=== PATIENT | female | born 1935 | race Caucasian/White ===

== ENCOUNTER 2018-05-20 16:31 | Observation (INO) | payer MEDICARE ==
[2018-05-20 17:36] LABS: #Eosinphils 0.3 thou/uL (0.0-0.7); #Lymphocytes 0.7 thou/uL (1.20-3.40); #Monocytes 0.4 thou/uL (0.11-0.59); #Neutrophils 5.9 thou/uL (1.40-6.50); %Basophils 0.1 % (0.0-1.0); %Eosinophils 3.6 % (0.0-10.0); %Lymphocytes 9.7 % (21.0-51.0); %Monocytes 5.8 % (0.0-10.0); %Neutrophils 80.8 % (42.0-75.0); Hemoglobin 11.2 g/dL (12.0-16.0); Mean Corpuscular Hemoglobin 27.9 pg (27.0-31.0); Mean Corpuscular Volume 87.4 fL (78.0-98.0); Mean Platelet Volume 9.3 fL (7.4-10.4); Platelet Count 184 thou/uL (130-400); Red Blood Cell (RBC) Count 4.03 mill/uL (4.20-5.40); White Blood Cell (WBC) Count 7.4 thou/uL (4.8-10.8)
--- NOTE | 2018-05-20 17:56 | ULT ---
ULTRASOUND WITH DOPPLER DUPLEX VENOUS LOWER EXTREMITIES BILATERAL: HISTORY: An 83-year-old female with bilateral lower extremity pain. TECHNIQUE: Color flow Doppler, spectral waveform analysis of pulsed Doppler, and johnson-scale imaging with thony yue and augmentation, were used to evaluate the bilateral common femoral, femoral, popliteal, telehealth case manager ior tibial, and superficial femoral, veins; and the proximal portions of the profunda femoral and gre ater saphenous, veins. FINDINGS: There is normal compressibility, demonstration of blood flow by color Doppler and pulsed Doppler, and response to augmentation, in all interrogated veins. IMPRESSION: Negative. No deep vein thrombosis in the bilateral lower extremities. jn[] POS: ANA
[2018-05-20 17:57] LABS: ALT (SGPT) 8 U/L (8-55); AST (SGOT) 15 U/L (5-34); Albumin 3.6 g/dL (3.4-4.8); Alkaline Phosphatase 55 U/L (40-150); Anion Gap 11 mmol/L (10-20); BUN (Urea Nitrogen) 16 mg/dL (9.8-20.1); Bilirubin, Total 0.5 mg/dL (0.2-1.2); CK (CPK) 29 U/L (29-168); Calc. Creatinine Clearance 0 mL/min (70-130); Calcium 8.4 mg/dL (7.8-10.44); Carbon Dioxide 25 mmol/L (23-31); Chloride 107 mmol/L (98-107); Estimated GFR-MDRD 53; Globulin 2.4 g/dL (2.4-3.5); Glucose 97 mg/dL (83-110); Lipase 18 U/L (8-78); Potassium 3.9 mmol/L (3.5-5.1); Sodium 139 mmol/L (136-145)
[2018-05-20 18:01] LABS: CKMB 1.9 ng/mL (0-6.6); Troponin I 0.087 ng/mL (< 0.028)
[2018-05-20 18:46] LABS: Bilirubin Negative (Negative); Blood, Urine Negative (Negative); Clarity CLEAR (Clear); Glucose, Urine (Dipstick) Negative (Negative); Leukocyte Negative (Negative); Nitrite Negative (Negative); Protein, Urine (Dipstick) 100 mg/dL (Neg-Trace); Specific Gravity, Urine 1.011 (1.002-1.036); Urobilinogen 0.2 mg/dL (0.2-1.0)
[2018-05-20 18:49] LABS: Bacteria/HPF None Seen HPF (None Seen); Hyaline Casts/LPF 0-3 HYALINE CAST LPF (0-3 Hyaline); Pathc Cast-AUWi Flag 0.29 (0-2.49); RBC/HPF 0-3 HPF (0-3); Squamous Epithelial 0-3 HPF (0-3); WBC/HPF 0-3 HPF (0-3)
[2018-05-20] MEDS ORDERED: Enoxaparin Sodium 60 MG/0.6 ML SYRINGE ONE (19:05)
[2018-05-20] MEDS ORDERED: Furosemide 40 MG/4 ML VIAL ONE (19:05)
[2018-05-20] MEDS ORDERED: Nitroglycerin 2% Ointment 1 INCH/1 GM Packet ONE (19:05)
[2018-05-20] MEDS ORDERED: Ondansetron HCl/PF 4 MG/2 ML Vial IVP PRN (19:45)
[2018-05-20] MEDS ORDERED: Acetaminophen 325 MG TAB PO PRN (19:45)
[2018-05-20 21:20] LABS: Troponin I 0.064 ng/mL (< 0.028)
[2018-05-20] MEDS ORDERED: hydrALAZINE 20 MG/ML VIAL SLOW IVP PRN (21:29)
[2018-05-20] MEDS ORDERED: Dextrose 50% Abboject 50 ML SYRINGE SLOW IVP PRN (21:30)
[2018-05-20] MEDS ORDERED: HumaLOG 300 UNITS/3 ML VIAL SC PRN (21:30)
[2018-05-20] MEDS ORDERED: Dextrose 5% in Water 1,000 ML IV PRN (21:30)
[2018-05-20 21:34] VITALS: BMI 21.3
[2018-05-20 23:34] LABS: Troponin I 0.054 ng/mL (< 0.028)
--- NOTE | 2018-05-21 01:38 | HP ---
PRIMARY CARE PHYSICIAN: Jorge Johns MD CODE STATUS: FULL CODE. TIME OF EVALUATION: 7:30 p.m. CHIEF COMPLAINT: Chest pain, shortness of breath. HISTORY OF PRESENT ILLNESS: This is an [id number] male patient with past medical history of CHF, p revious CT, hypertension, diabetes, came to the hospital after having [id number] shortness of b reath and chest pain associated with chills, dizziness, nausea. No clear triggers, no alleviating fa ctors. REVIEW OF SYSTEMS: Constitutional: The patient reported no fever. She reported some chills, genera lized weakness. Respiratory: Some cough, no sputum production. Shortness of breath. Cardiovascula r: The patient with some chest pain. No palpitation. Gastrointestinal: The patient reported some nausea and vomiting. No diarrhea or abdominal pain. PERFORMANCE ANALYST: No dizziness, headache, or feeling lighth eaded. Genitourinary: No burning on urination. Extremities: No leg swelling. All other systems w ere reviewed and negative except for the findings mentioned above. PAST MEDICAL HISTORY: History of CHF, coronary artery disease, hypertension, diabetes. PAST SURGICAL HISTORY: Cardiac stent, hemicolectomy, tonsillectomy. SOCIAL HISTORY: The patient drinks socially twice a month. Former drug abuser. Smoked cigarettes, quit smoking more than 10 years ago. FAMILY HISTORY: Reviewed and noncontributory for current presentation. ALLERGIES: IODINE. REPORTED MEDICATIONS: Lisinopril, Plavix, and atorvastatin. PHYSICAL EXAMINATION: VITAL SIGNS: On presentation, blood pressure 164/117 with a heart rate of 56, respiratory rate was 1 6, temperature 97.7, pain was 0/10, oxygen saturation 97 on room air. GENERAL APPEARANCE: The patient is alert, oriented, not in acute distress. HEENT: Eyes, normal conjunctivae. Moist oral mucosa. Anicteric. NECK: No JVD. RESPIRATORY: Bilateral air entry. No rales, no wheezes. Symmetric expansion. CARDIOVASCULAR: Normal rate, regular rhythm. No murmurs, no gallop, no edema. ABDOMEN: Soft. Normal bowel sounds. MUSCULOSKELETAL: Baseline range of motion and strength. No tenderness. SKIN: Warm and intact. No pallor, no rash, no redness. Peripheral pulses are present. Capillary r efill seems to be intact. NEUROLOGIC: Baseline sensorium. No evidence of any new focal weakness. Baseline speech. Cranial n erves seem to be intact. PSYCHIATRIC: The patient is in good mood. No anxiety. Oriented. Optimal judgment. EKG was reviewed. Sinus bradycardia, rate of 58, DC 190, no evidence of any acute ischemic events. RADIOLOGY: CT chest, negative without contrast. Ultrasound of bilateral extremities negative. LABORATORY DATA: Reviewed. White count 7.4, hemoglobin 11.2, MCV 87, platelet count 184. D-dimer 1 .26. Chemistry: Sodium 139, potassium 3.9, chloride 107, carbon dioxide 25, anion gap 11, BUN 16, c reatinine 0.99, GFR 53, glucose 97, lactic acid 0.9, calcium 8.4, total bilirubin 0.5, AST 15, ALT 8, alkaline phosphatase 55, CK 29, CK-MB 1.9. Troponin is 0.087. Beta-natriuretic peptide 115.8. Ser um total protein 6, albumin 3.6, globulin 2.4, albumin globulin ratio 1.5, lipase 18, TSH 0.5. Urine was negative. ASSESSMENT AND PLAN: The patient will be placed in the hospital with following medical problems: 1. Chest pain, rule out acute coronary syndrome. We will trend troponins. The patient has positive D-dimer. CT without contrast was negative. We will do V/Q scan for PE. We will follow zaki p. Adjust treatment as needed. 2. Elevated beta-natriuretic peptide most compatible with possible congestive heart failure exacerba tion. We will have . 3. Mild elevation in troponins. We will trend. Rule out acute coronary syndrome. Monitor on tele. May need Cardiology evaluation in the morning. 4. Uncontrolled blood pressure with systolic blood pressure 167 and diastolic in the 70s. We will r econcile home meds. IV p.r.n. medications for optimal control. 5. Controlled diabetes. We will place the patient on sliding scale for optimal control. 6. Deep venous thrombosis prophylaxis.
[2018-05-21 05:13] LABS: #Eosinphils 0.6 thou/uL (0.0-0.7); #Lymphocytes 1.2 thou/uL (1.20-3.40); #Monocytes 0.6 thou/uL (0.11-0.59); #Neutrophils 3.7 thou/uL (1.40-6.50); %Basophils 0.3 % (0.0-1.0); %Eosinophils 10.2 % (0.0-10.0); %Lymphocytes 19.8 % (21.0-51.0); %Monocytes 9.6 % (0.0-10.0); %Neutrophils 60.1 % (42.0-75.0); Mean Corpuscular HGB CONC 32.7 g/dL (32.0-36.0); Mean Corpuscular Hemoglobin 27.8 pg (27.0-31.0); Mean Corpuscular Volume 85.2 fL (78.0-98.0); Mean Platelet Volume 9.1 fL (7.4-10.4); Platelet Count 211 thou/uL (130-400); RBC Distribution Width 19.9 % (11.5-14.5); Red Blood Cell (RBC) Count 3.96 mill/uL (4.20-5.40); White Blood Cell (WBC) Count 6.2 thou/uL (4.8-10.8)
[2018-05-21 05:36] LABS: Anion Gap 12 mmol/L (10-20); BUN (Urea Nitrogen) 21 mg/dL (9.8-20.1); Calc. Creatinine Clearance 27 mL/min (70-130); Calcium 8.7 mg/dL (7.8-10.44); Carbon Dioxide 25 mmol/L (23-31); Chloride 107 mmol/L (98-107); Estimated GFR-MDRD 39; Glucose 88 mg/dL (83-110); Potassium 3.4 mmol/L (3.5-5.1); Sodium 141 mmol/L (136-145)
[2018-05-21] MEDS ORDERED: ADENOSINE 60 MG/20 ML VIAL ONE (07:40)
[2018-05-21] MEDS ORDERED: Potassium Chloride 20 MEQ TAB PO SCH (07:45)
[2018-05-21] MEDS ORDERED: Prevnar 13-Val Conj/PF 0.5 ML SYRINGE IM ONE (09:00)
[2018-05-21] MEDS ORDERED: Enoxaparin Sodium 40 MG/0.4 ML SYRINGE SC SCH (09:00)
[2018-05-21] MEDS ORDERED: Enoxaparin Sodium 60 MG/0.6 ML SYRINGE SC SCH (09:00)
--- NOTE | 2018-05-21 09:55 | RAD ---
CHEST 1 VIEW: HISTORY: Pain. COMPARISON: None. FINDINGS: Atherosclerosis of the aorta. Normal cardiac silhouette. The pulmonary vessels and hilum are normal . Costophrenic angles are clear. Lungs are hyperinflated with chronic changes. There is obscuratio n of the right heart border suggesting a middle lobe infiltrate or atelectasis. No pneumothorax. IMPRESSION: 1. Hyperinflation. Chronic obstructive pulmonary disease. 2. Obscuration of right heart border due to atelectasis or pneumonia. 3. Atherosclerosis. POS: BREA
[2018-05-21] MEDS ORDERED: Sodium Chloride 0.9% 1,000 ML IV SCH (10:00)
--- NOTE | 2018-05-21 10:06 | PDOC.EVN ---
Event Note - Event Note Event Note: spoke with pt she states that she had diarrhea x1 yesterday am after eating out on Sunday night. pt states she just has not been feeling well. furthermore she states that when she had her heart attack she felt fatigue and that is what concerned her. 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 pt's cxr possible infiltrate to RLL, will discontinue v/q scan since this will be a suboptimal study. will hydrate her and if her creatinine is stable will do chest CTA.
--- NOTE | 2018-05-21 15:22 | CON ---
DATE OF CONSULTATION: 05/21/2018 REASON FOR CONSULTATION: Atypical chest pain. HISTORY OF PRESENT ILLNESS: Ms. Zayas is an 83-year-old woman who has been seen and evaluated in the past. She has a history of CAD, status post stent placement in [place], [place]. This was performed in 2009. She underwent a Cypher stent to the ostium of the right coronary artery, 3 x 30 mm drug-elu ting stent her diagram. She also had a stent placed to the circumflex artery. She recently complained of dizziness, lightheadedness. She also complained of chest tightness, which was mild in nature. It was not exertionally related. She previously was seen by myself last month and recommended a noninvasive stress study, this has not been performed. PAST MEDICAL HISTORY: CAD status post stent placement, diabetes mellitus, hypertension, hyperlipidem ia, previous MN, hypertension, stent to the ostial right coronary artery and circumflex artery. PAST SURGICAL HISTORY: Tonsillectomy. ALLERGIES: None. SOCIAL HISTORY: No current tobacco or alcohol use. REVIEW OF SYSTEMS: Ten-point review of systems as above, otherwise negative. PHYSICAL EXAMINATION: VITAL SIGNS: Blood pressure 139/64, pulse 60, temperature 99. NEUROLOGIC: The patient is alert and oriented times 3 with no focal neurologic deficits. HEENT: Sclerae without icterus. Mouth has moist mucous membranes with normal pallor. NECK: No JVD. Carotid upstroke brisk. No bruits bilaterally. LUNGS: Clear to auscultation with unlabored respirations. BACK: No scoliosis or kyphosis. CARDIAC: Regular rate and rhythm with normal S1 and S2. No S3 or S4 noted. No significant rubs, murmurs, thrills, or gallops noted throughout the precordium. PMI is not displaced. There is no parasternal heave. ABDOMEN: Soft, nontender, nondistended. No peritoneal signs present. No hepatosplenomegaly. No abnormal striae. EXTREMITIES: 2+ femoral and 2+ dorsalis pedis pulses. No cyanosis, clubbing, or edema. SKIN: No gross abnormalities. PERTINENT LABS: Peak troponin 0.064. EKG normal sinus rhythm, normal EKG. IMPRESSION: 1. Atypical chest pain. 2. Dizziness. 3. Diarrhea. RECOMMENDATIONS: At this point, history of CAD, but her symptoms are atypical. It seems to pr oceed with a noninvasive stress study is previously scheduled. Further recommendation will be pendin g the findings on the stress.
--- NOTE | 2018-05-21 16:11 | NM ---
EXAM: NUCLEAR MEDICINE CARDIAC STRESS WITH EF AND WALL MOTION 05/21/18 HISTORY: Chest pain. History of coronary artery disease. Cardiac stent. COMPARISON: None. TECHNIQUE: The patient was administered 0.1 millicuries technetium 99m Sestamibi for rest imaging and 32.9 marium curies of technetium 99m Sestamibi for stress imaging. Cardiac gating is performed. FINDINGS: Homogeneous distribution of radiotracer to the left ventricle. No reversibility. No fixed defect. TID is 0.92. End diastolic volume is 71 mL. End systolic volume is 19 mL. CARDIAC GATING: Normal motion and thickening. 72% ejection fraction. IMPRESSION: 1. No reversibility or fixed defect. 2. 72% ejection fraction. POS: BREA
[2018-05-22 06:37] LABS: Hemoglobin 10.7 g/dL (12.0-16.0); Platelet Count 218 thou/uL (130-400)
[2018-05-22 07:06] LABS: Anion Gap 12 mmol/L (10-20); BUN (Urea Nitrogen) 17 mg/dL (9.8-20.1); Calc. Creatinine Clearance 37 mL/min (70-130); Calcium 8.3 mg/dL (7.8-10.44); Carbon Dioxide 23 mmol/L (23-31); Chloride 109 mmol/L (98-107); Estimated GFR-MDRD 51; Glucose 86 mg/dL (83-110); Potassium 3.8 mmol/L (3.5-5.1); Sodium 140 mmol/L (136-145)
[2018-05-22] MEDS ORDERED: Enoxaparin Sodium 60 MG/0.6 ML SYRINGE SC SCH (09:00)
[2018-05-22] MEDS ORDERED: Lisinopril 20 MG TAB PO SCH (10:45)
[2018-05-22] MEDS ORDERED: Clopidogrel Bisulfate 75 MG TAB PO SCH (10:45)
--- NOTE | 2018-05-22 11:25 | DIS ---
DATE OF ADMISSION: 05/20/2018 DATE OF DISCHARGE: 05/22/2018 DISCHARGE DIAGNOSES: 1. Chest pain, likely musculoskeletal, noncardiac. 2. Hypertension, labile. 3. Coronary artery disease, chronic and stable. 4. Hyperlipidemia. CONSULTATIONS: Parish Moeller M.D. with Cardiology Service. PERTINENT LABORATORY AND X-RAY FINDINGS: Complete metabolic profile within normal limits. Troponin I ranged between 0.054-0.087. BNP 316. TSH 0.58. CBC showed a hemoglobin ranging between 10.7-11.2 . Blood cultures x2 dated 05/20/2018 showed no growth to date. Bilateral lower extremity venous Dop pler study dated 05/20/2018 showed no evidence for DVT. Portable chest x-ray dated 05/21/2018 showed hyperinflation of bilateral lung salgado without acute process. Cardiolite stress test dated 018 showed no evidence of reversible or fixed ischemia with calculated ejection fraction of 72%. HOSPITAL COURSE: The patient was observed on the telemetry unit after initially presenting with shor tness of breath and chest pain. The patient underwent extensive evaluation including metabolic scree amol showing evidence of mild troponin elevation. Due to history of coronary artery disease, the pat ient proceeded with Cardiolite stress testing showing no evidence of reversible or fixed ischemia wit h calculated ejection fraction of 72%. The patient was evaluated by the Cardiology service without susana daniels recommendations for acute intervention and to continue medical management with Plavix and Lipi tor. Telemetry monitoring showed sinus mechanism without evidence of acute arrhythmia or dysrhythmia . The patient remained clinically stable throughout the hospital course, tolerating regular oral int gamaliel with stable vital signs. The patient was noted with mild elevated blood pressure with recommenda tions for ongoing monitoring on an outpatient basis. The patient may need additional titration of he r antihypertensive regimen after discharge. I have examined the patient at the time of discharge and discussed followup instructions. The patient verbalized understanding and agreement and ready for d ischarge on 05/22/2018. DISCHARGE MEDICATIONS: 1. Lipitor 40 mg p.o. daily. 2. Plavix 75 mg p.o. daily. 3. Benadryl 25 mg p.o. daily p.r.n. 4. Ferrous sulfate 47.5 mg p.o. daily. 5. Advil 200 mg p.o. daily p.r.n. 6. Lisinopril 40 mg p.o. daily. 7. Macrobid 100 mg p.o. b.i.d. FOLLOWUP: The patient may follow up with her primary care provider, Dr. Jorge Johns within 7 days of discharge. CONDITION ON DISCHARGE: Stable. ACTIVITY: Ad rich. DIET: Heart healthy. CODE STATUS: Full. DISPOSITION: Home, 05/22/2018.
[2018-05-22 11:41] VITALS: BP 175/74
[2018-05-22 13:45] VITALS: TEMP 98.3
[2018-05-23] MEDS ORDERED: Clopidogrel Bisulfate 75 MG TAB PO SCH (09:00)
[2018-05-23] MEDS ORDERED: Lisinopril 20 MG TAB PO SCH (09:00)
== END 2018-05-22 14:08 | disposition home or self-care (01) ==
LOC: ERS 16:31 → 2NO 18:45
PROVIDERS: ADMIT Internal Medicine Infectious Disease; ATTEND Internal Medicine Infectious Disease
DX: R07.89 Other chest pain (principal); R42 Dizziness and giddiness; R19.7 Diarrhea, unspecified; I11.0 Hypertensive heart disease with heart failure; E11.9 Type 2 diabetes mellitus without complications; I50.9 Heart failure, unspecified; I25.10 Atherosclerotic heart disease of native coronary artery without angina pectoris; Z91.041 Radiographic dye allergy status; Z87.891 Personal history of nicotine dependence; E78.5 Hyperlipidemia, unspecified; Z79.02 Long term (current) use of antithrombotics/antiplatelets; Z79.899 Other long term (current) drug therapy
CPT/HCPCS: 36415; 36416; 71045; 78452; 80048; 80053; 81003; 81015; 82550; 82553; 83605; 83690; 83880; 84443; 84484; 85014; 85018; 85025; 85049; 85379; 87040; 90471; 90670; 93005; 93017; 93970; 96372; 96374; 96375; A4216; A9500; G0009; G0378; J0153; J0360; J1650; J1940

== ENCOUNTER 2018-05-24 14:29 | Inpatient (IN) | payer MEDICARE ==
[2018-05-24] MEDS ORDERED: Ondansetron ODT 4 MG TAB PO PRN (18:36)
[2018-05-24] MEDS ORDERED: Acetaminophen 500 MG TAB PO PRN (18:36)
[2018-05-24] MEDS ORDERED: cloNIDine 0.1 MG TAB PO PRN (18:36)
[2018-05-24] MEDS ORDERED: hydrALAZINE 20 MG/ML VIAL SLOW IVP PRN (18:36)
[2018-05-24] MEDS ORDERED: Ondansetron HCl/PF 4 MG/2 ML Vial IVP PRN (18:36)
[2018-05-24] MEDS ORDERED: Nitroglycerin 0.4 MG TAB (25 Tab Bottle) SL PRN (18:36)
[2018-05-24] MEDS ORDERED: Aspirin 325 mg Enteric Coated Tablet PO SCH (18:45)
[2018-05-24 18:47] VITALS: BMI 21.3
--- NOTE | 2018-05-24 21:22 | HP ---
PRIMARY CARE PHYSICIAN: Jorge Johns MD CHIEF COMPLAINT: General weakness and nausea. HISTORY OF PRESENT ILLNESS: This is an 83-year-old female who presents to [facility] Emergency Department after a recent observation admission from 05/20/2018 to 05/22/2018 for cardi ac workup. The patient presented with atypical chest pain, undergoing Cardiolite stress testing on 0 05/21/2018 showing no evidence of reversible or fixed defect with calculated ejection fraction of 72%. The patient was evaluated by the Cardiology Service during this hospital stay; however, after a neg ative Cardiolite stress testing, was deemed appropriate for discharge. The patient states she contin ued on her regular outpatient medication regimen to include Plavix, lisinopril, and Lipitor. The pat ient states she was at home taking care of her four dogs when she began to feel weak with nausea and emesis. The patient also states she felt cold with shivering and went to get extra blankets to put o n. As she was walking through her house, she became extremely weak, slumping to the floor without lo ss of consciousness. The patient states she was unable to get off the ground and notified her childr en, who notified EMS personnel. The patient denied any specific chest pain, chest tightness, crushin g chest pain, left arm or jaw discomfort. The patient's history is significant for coronary artery d isease, undergoing cardiac stent placement in 2009 in the right coronary and circumflex arteries. In itial workup in the emergency room revealed an elevated troponin I of 2.78. Previously, the patient 's troponin I ranged between 0.054 to 0.087. The patient received aspirin in the emergency room and was referred to the Hospitalist Service for admission. PAST MEDICAL HISTORY: 1. Coronary artery disease, status post stent placement to the right coronary and circumflex artery in 2009. 2. Hypertension. 3. Hyperlipidemia. 4. Question of diabetes mellitus. PAST SURGICAL HISTORY: 1. Status post cardiac stent placement x2 to the right coronary and circumflex artery. 2. Status post hemicolectomy. 3. Status post tonsillectomy. CURRENT MEDICATIONS: 1. Lipitor 40 mg p.o. daily. 2. Plavix 75 mg p.o. daily. 3. Ferrous sulfate 47.5 mg p.o. daily. 4. Lisinopril 40 mg p.o. daily. ALLERGIES: IODINE. FAMILY HISTORY: Positive for hypertension. SOCIAL HISTORY: The patient resides in the [place], [place] area. No tobacco or illicit drug use. The patient admits to former drug use. Alcohol use approximately 2 times per month. REVIEW OF SYSTEMS: The following complete review of systems was negative, unless otherwise mentioned in the HPI or below: Constitutional: Weight loss or gain, ability to conduct usual activities. Sk in: Rash, itching. Eyes: Double vision, pain. ENT/Mouth: Nose bleeding, neck stiffness, pain, te nderness. Cardiovascular: Palpitations, dyspnea on exertion, orthopnea. Respiratory: Shortness of breath, wheezing, cough, hemoptysis, fever, or night sweats. Gastrointestinal: Poor appetite, abdo kali pain, heartburn, nausea, vomiting, constipation, or diarrhea. Genitourinary: Urgency, frequen cy, dysuria, nocturia. Musculoskeletal: Pain, swelling. Neurologic/Psychiatric: Anxiety, depressi on. Allergy/Immunologic: Skin rash, bleeding tendency. Otherwise, negative except as stated per HP I. PHYSICAL EXAMINATION: VITAL SIGNS: Currently, blood pressure 155/75, pulse 60, respiratory rate 18, temperature 98 degrees Fahrenheit, O2 saturation 95% on room air. GENERAL APPEARANCE: This is an 83-year-old female, alert and oriented x3, pleasant, conver chandana, in no acute distress. HEENT: Pupils are equal, round, and reactive to light and accommodation. Extraocular muscles are in tact. No scleral icterus. No conjunctival injection. Nares patent. OP is clear. NECK: Supple. No cervical adenopathy, no thyromegaly, no carotid bruits, no JVD appreciated. Cervi wayne spine with full active and passive range of motion. No meningeal signs appreciated. CHEST: Lungs are clear to auscultation bilaterally. CARDIOVASCULAR: S1, S2 without noted murmur, rub, or gallop. ABDOMEN: Rounded, soft, nontender, nondistended. Bowel sounds are positive in all four quadrants. There is no hepatosplenomegaly, no abdominal bruits. No rebound or guarding appreciated. EXTREMITIES: Warm and dry with fair turgor. No clubbing, cyanosis, or asymmetric edema appreciated. Pulses palpable distally at the dorsalis pedis, posterior tibial, and popliteal arteries bilaterall y. Capillary refill less than 2 seconds. NEUROLOGIC: Cranial nerves II-XII are grossly intact. No focal or lateralizing signs appreciated. PERTINENT LABORATORY AND X-RAY FINDINGS: Basic metabolic profile from 05/22/2018 within normal limit s. Troponin I is 2.78. BNP was 316 on 05/20/2018. TSH is 0.58. Cardiolite stress test dated 05/21 showed no evidence for reversible or fixed ischemia with calculated ejection fraction of 72%. EKG dated 05/24/2018 by my interpretation shows a sinus mechanism. Normal axis. No acute ST-T wave changes appreciated. ASSESSMENT AND PLAN: 1. [id number] myocardial infarction. The patient will be admitted to the telemetry unit. We will consult cardiology service for further recommendations and consideration for left heart catheter ization. Continue aspirin 325 mg daily with additional Plavix 75 mg daily. We will hold anticoagula tion as the patient without current chest pain. Check 2D transthoracic echocardiogram in the a.m. C ontinue Lipitor 40 mg p.o. at bedtime. Add metoprolol 12.5 mg p.o. b.i.d. 2. Hypertension. Resume home antihypertensive regimen and monitor clinical response. 3. Hyperlipidemia. Check fasting lipid profile in the a.m. Continue Lipitor 40 mg p.o. at bedtime. 4. Normocytic anemia. Chronic. No current evidence to suggest acute blood loss. Repeat CBC in the a.m. 5. Coronary artery disease. See #1 above. Consult Cardiology Service for further recommendations a nd consideration for repeat left heart catheterization. 6. Prophylaxis. Sequential compression devices while in bed. Pepcid 20 mg p.o. b.i.d. 7. Code status is FULL. Surrogate medical decision maker is the patient's daughter.
[2018-05-24] MEDS: Famotidine 20 MG TAB PO SCH (21:34)
[2018-05-24] MEDS: Atorvastatin Calcium 40 MG TAB PO SCH (21:34)
[2018-05-24] MEDS: Metoprolol Tartrate 25 MG TAB PO SCH (21:34)
[2018-05-24 21:57] LABS: Critical Call Chem Troponin I RESULT DECREASING; Troponin I 1.975 ng/mL (< 0.028)
[2018-05-25 01:23] LABS: Critical Call Chem Troponin I RESULT DECREASING; Troponin I 2.387 ng/mL (< 0.028)
[2018-05-25 04:58] LABS: Anion Gap 13 mmol/L (10-20); BUN (Urea Nitrogen) 22 mg/dL (9.8-20.1); Calc. Creatinine Clearance 30 mL/min (70-130); Calcium 8.7 mg/dL (7.8-10.44); Carbon Dioxide 23 mmol/L (23-31); Chloride 105 mmol/L (98-107); Cholesterol 114 mg/dl (< 200 Desired); Estimated GFR-MDRD 43; Glucose 100 mg/dL (83-110); HDL Cholesterol 38 mg/dL (>60 Neg Risk); LDL Cholesterol, Calculated 59 mg/dL; Magnesium 1.8 mg/dL (1.6-2.6); Potassium 3.9 mmol/L (3.5-5.1); Sodium 137 mmol/L (136-145); Triglycerides 85 mg/dL (Less than 150)
[2018-05-25 04:59] LABS: Band 7 % (5-11); Eosinophils 2 % (0-10); Hemoglobin 11.2 g/dL (12.0-16.0); Lymphocytes 19 % (21-51); MDiff Complete? YES; Mean Corpuscular HGB CONC 32.6 g/dL (32.0-36.0); Mean Corpuscular Hemoglobin 28.2 pg (27.0-31.0); Mean Corpuscular Volume 86.6 fL (78.0-98.0); Mean Platelet Volume 9.5 fL (7.4-10.4); Monocytes 6 % (0-10); Neutrophil 66 % (42-75); PLT Morphology Comment Appears Adequate; Platelet Count 249 thou/uL (130-400); RBC Distribution Width 19.7 % (11.5-14.5); Red Blood Cell (RBC) Count 3.95 mill/uL (4.20-5.40); White Blood Cell (WBC) Count 6.5 thou/uL (4.8-10.8)
[2018-05-25] MEDS: Metoprolol Tartrate 25 MG TAB PO SCH ×2 (09:27→20:30)
[2018-05-25] MEDS: Aspirin 325 mg Enteric Coated Tablet PO SCH (09:28)
[2018-05-25] MEDS: Clopidogrel Bisulfate 75 MG TAB PO SCH (09:28)
--- NOTE | 2018-05-25 12:49 | PDOC.PN ---
- Subjective Encounter Start Date: 05/25/18 Encounter Start Time: 12:47 Ms. Zayas was seen today in follow-up of chest pain and NSTEMI. She says she is feeling hungry, otherwise ok. The weakness chills and nausea she felt yesterday has resolved. - Objective Resuscitation Status: Resuscitation Status FULL:Full Resuscitation MAR Reviewed: Yes Vital Signs & Weight: Vital Signs (12 hours) Temp Pulse Pulse Pulse Resp BP BP 05/25/18 12:10 98.1 F 48 L 18 05/25/18 09:27 59 L 05/25/18 08:58 53 L 56 L 156/69 H 161/70 H 05/25/18 08:00 97.2 F L 59 L 18 05/25/18 07:58 97.2 F L 55 L 18 05/25/18 04:00 97.7 F 54 L 12 BP Pulse Ox Pulse Ox Pulse Ox 05/25/18 12:10 153/70 H 94 L 05/25/18 09:27 05/25/18 08:58 94 L 96 05/25/18 08:00 05/25/18 07:58 154/68 H 96 05/25/18 04:00 116/59 L 92 L Weight Weight 120 lb 8 oz Result Diagrams: 05/25/18 04:03 05/25/18 04:03 Phys Exam - Physical Examination HEENT: PERRLA, sclera anicteric Respiratory: no wheezing, no rales, no rhonchi, clear to auscultation bilateral Cardiovascular: RRR, no significant murmur, no rub no gallop Gastrointestinal: soft, non-tender, no distention, positive bowel sounds Musculoskeletal: no edema Dx/Plan (1) NSTEMI (non-ST elevated myocardial infarction) Code(s): I21.4 - NON-ST ELEVATION (NSTEMI) MYOCARDIAL INFARCTION Status: Acute (2) Hypertension Code(s): I10 - ESSENTIAL (PRIMARY) HYPERTENSION Status: Chronic (3) Dyslipidemia Code(s): E78.5 - HYPERLIPIDEMIA, UNSPECIFIED Status: Chronic - Plan * NSTEMI- continue aspirin, statin, and nitrates as needed. Her heart rate has been low, therefore Metoprolol will be held * HTN- blood pressure is slightly elevated- will monitor, and consider adding amlodipine * Dyslipidemia- continue Lipitor * Echo results are pending, and await Cardiology evaluation.
--- NOTE | 2018-05-25 16:57 | CON ---
DATE OF CONSULTATION: 05/25/[address] Alvarez' nurse practitioner. ROOM # 257. PRIMARY CARE DOCTOR: Jorge Johns M.D. PRIMARY PAROLE SUPERVISOR: Parish Moeller M.D. REFERRING DOCTOR: Lopez Mahan D.O. REASON FOR CARDIOLOGY CONSULTATION: Acute myocardial infarction. HISTORY OF PRESENT ILLNESS: Ms. Zayas is an 83 years old female with a significant history of coronary artery disease, status post stent placement x2 in 1983 and in 2009, hypertension, hyperl ipidemia, and borderline diabetes. The patient was here on 05/20 through 05/21 for the chest pain. She had a stress test at that time, which shows no ischemia and EF of 72%. On 03/22, she felt really cold and started shaking and felt nauseated, and next day, when she was taking care of her dogs, she felt weakness in the bilateral lower extremities and she slipped down for 45 minutes. Finally, she called her neighbors and they are who called the ambulance and she was transferred to emergency [facility] for further evaluation and treatment. She still complained of and the mild shakiness. H owever, patient denied any chest pain or discomfort or heaviness to the chest, palpitation, flutterin g, or any other cardiac complaints during the episode. She has a history of NV and stent placements x2. Both times, she did not have any chest pain or discomfort or shortness of breath; however, she f elt very tired, no energy. She also complained of dizziness with movement, but she denies any near s yncopal episode. Today, the nurse reports that the patient's heart rates are going down to 40s with metoprolol 12.5 twice a day. The patient denies any syncopal episodes at this time. The stress test showed no ischemia and stable EF. The patient had echocardiogram done in 03/[address] Moleler's office, which shows EF of 50%-55%, moderate mitral valve regurgitation, eqzc-eh-fmefe ate tricuspid regurgitation, and grade 1 diastolic dysfunction, without elevated left atrial pressure . Carotid Doppler was done in 2010 in [place], which showed there was 30%-50% stenosis in the right ICA and mild plaque in the bilateral carotid arteries. The patient had stent placement x2, and the l ast one 2009 with OM of the right coronary arteries and she has a stent in the circumflex arteries. PAST MEDICAL HISTORY: 1. Coronary artery disease with multiple stent placements in 1983 and 2009. 2. Hypertension. 3. Hyperlipidemia. 4. Borderline diabetes. PAST SURGICAL HISTORY: 1. Stent placement 1983 and 2009. 2. Tonsillectomy. 3. The patient had a history of colon cancer with a resection, but no chemotherapy required in 04/05 18. FAMILY HISTORY: There have a significant coronary artery disease in the maternal side. The patient' s uncle at the age of 41 due to the massive heart attack and the patient's maternal grandfat her due to the NV at the age of 52. Patient's mother due to the lung cancer, but h er mother was also a heavy smoker, and also, the patient's father has a medical history of hypertensi on. Also, patient's 2 grandsons have congenital heart defects. The patient's son due to pa ncreatic cancer. SOCIAL HISTORY: Patient is a . She had 3 children, but one of the children due to the cancer. Two of her children living well. She is living by herself. She has a good neighbor suppor . She quit smoking in 1983. She is enjoying wine occasionally. She denied illicit drug abuse. ALLERGIES: She is allergic to IODINE. MEDICATIONS: Patient is on medications, 1. Atorvastatin 40 mg once a day. 2. Lisinopril 40 mg once a day. 3. Advil 200 mg 1 tablet as needed. 4. Ferrous sulfate mg once a day. 5. Plavix 75 mg once a day. REVIEW OF SYSTEMS: A 12-point review of systems was negative, unless otherwise mentioned in the HPI. Patient had a history of UTI after she had a colon resection in 03/2018, but at this moment, the pa tient denied any dysuria, hematuria, or any other complaints. PHYSICAL EXAMINATION: VITAL SIGNS: Blood pressure 153/70, heart rate 48, sinus liliya, temperature 98.1, O2 sat 94% with ro om air. GENERAL: The patient is alert and oriented x4. Not in acute distress. HEAD: Normocephalic, atraumatic. EYES: Extraocular muscle movement intact. ENT AND MOUTH: Oral and nasal mucosa was moist without lesion. NECK: No JVD. Neck is supple. RESPIRATORY: Clear to auscultate bilaterally, but diminished at the bases. CARDIOVASCULAR: Regular rate and rhythm. Normal S1 and S2. There are no S3 or S4. There are posit valente bruit to the bilateral carotid arteries, but no murmur, hives, or thrills noted. There are 2+ pu lses in bilateral lower extremities. No edema. Warm to touch. ABDOMEN: Nontender. No mass to palpate. Positive bowel sounds. MUSCULOSKELETAL: The patient able to move all extremities. Patient denied claudication. SKIN: Warm and dry. No lesion or bruise noticed. PSYCHIATRIC: Patient is alert and oriented x4. Mood is appropriate. LABORATORY DATA: Blood work, WBC 6.5, hemoglobin 11.2, hematocrit 35.2, platelets 249. Sodium 137, potassium 3.9, BUN 22, creatinine of 1.20, magnesium 1.8. Troponin is 2.780, 2.387, and 1.975. Chol esterol 114, triglyceride 85, HDL 58, and LDL 59. The patient had a chest x-ray on 05/21, which show ed hyperinflation which is COPD and arthrosclerosis. The patient underwent a venogram on 05/18/2018, which shows negative for DVT. ASSESSMENT AND PLAN: 1. Izo-JP-[id number] elevation myocardial infarction. Although the patient's troponin, cardiac enzyme, was elevated, this patient does not have any cardiac complaints at this moment. The patient's echoc ardiogram was done and result is pending at this moment, and possible patient will undergo a cardiac catheterization on Sunday by Dr. Moeller. Patient had been on aspirin 325 mg once a day, Plavix 75 mg once a day, metoprolol 12.5 mg twice a day, which we might decrease due to the bradycardia. 2. Coronary artery disease with history of stent placement x2 in 1983 and 2009. 3. Hypertension. The patient's blood pressures have been slightly elevated and normal. We would li ke to adjust the patient medication. 4. Hyperlipidemia. Patient on the atorvastatin 40 mg once a day. 5. Dizziness. Patient complained of dizziness, possible due to the bradycardia or possible due to t he vertigo. The patient was instructed to call for support to prevent falling. 6. Bruits in the bilateral coronary arteries. Patient's carotid Doppler was done in 2010. Mario chacon to the office note, the patient may need a carotid Doppler study as an outpatient. Thank you very much for Cardiology service to participate in the care of this patient. We will folljuan charles along with the patient care team and make further recommendations as appropriate.
[2018-05-25] MEDS: Famotidine 20 MG TAB PO SCH (20:28)
[2018-05-25] MEDS: Atorvastatin Calcium 40 MG TAB PO SCH (20:29)
[2018-05-26 05:18] LABS: Anion Gap 12 mmol/L (10-20); BUN (Urea Nitrogen) 26 mg/dL (9.8-20.1); Calc. Creatinine Clearance 32 mL/min (70-130); Calcium 8.5 mg/dL (7.8-10.44); Carbon Dioxide 24 mmol/L (23-31); Chloride 108 mmol/L (98-107); Estimated GFR-MDRD 47; Glucose 88 mg/dL (83-110); Potassium 3.8 mmol/L (3.5-5.1); Sodium 140 mmol/L (136-145)
[2018-05-26] MEDS: Aspirin 325 mg Enteric Coated Tablet PO SCH (09:55)
[2018-05-26] MEDS: Famotidine 20 MG TAB PO SCH (09:58)
[2018-05-26] MEDS: Clopidogrel Bisulfate 75 MG TAB PO SCH (09:58)
[2018-05-26] MEDS: Metoprolol Tartrate 25 MG TAB PO SCH ×2 (09:59→21:07)
--- NOTE | 2018-05-26 11:57 | PDOC.PN ---
- Subjective Encounter Start Date: 05/26/18 Encounter Start Time: 11:56 Ms. Zayas was seen today in follow-up of NSTEMI. She does not have any complaints this afternoon. She denies chest pain or dyspnea. She denies feeling weak or lightheaded. - Objective Resuscitation Status: Resuscitation Status FULL:Full Resuscitation MAR Reviewed: Yes Vital Signs & Weight: Vital Signs (12 hours) Temp Pulse Pulse Pulse Resp BP BP 05/26/18 10:01 57 L 59 L 177/76 H 173/75 H 05/26/18 08:16 97.8 F 50 L 14 05/26/18 08:00 97.8 F 50 L 14 05/26/18 03:18 97.7 F 54 L 22 H BP Pulse Ox Pulse Ox Pulse Ox 05/26/18 10:01 96 95 05/26/18 08:16 145/50 H 95 05/26/18 08:00 95 05/26/18 03:18 138/65 95 Weight Admit Weight 120 lb 8 oz Weight 122 lb 9.6 oz I&O: 05/25/18 05/26/18 05/27/18 06:59 06:59 06:59 Intake Total 1247 Balance 1247 Result Diagrams: 05/25/18 04:03 05/26/18 04:36 Phys Exam - Physical Examination HEENT: PERRLA Respiratory: no wheezing, no rales, no rhonchi, clear to auscultation bilateral Cardiovascular: RRR, no significant murmur, no rub Gastrointestinal: soft, non-tender, no distention, positive bowel sounds Musculoskeletal: no edema, pulses present Dx/Plan (1) NSTEMI (non-ST elevated myocardial infarction) Code(s): I21.4 - NON-ST ELEVATION (NSTEMI) MYOCARDIAL INFARCTION Status: Acute (2) Hypertension Code(s): I10 - ESSENTIAL (PRIMARY) HYPERTENSION Status: Chronic (3) Dyslipidemia Code(s): E78.5 - HYPERLIPIDEMIA, UNSPECIFIED Status: Chronic - Plan * NSTEMI- plan is for left heart cath tomorrow. Continue aspirin and statin * Her heart rate is low- and therefore no beta-kyle * Echo results were noted- she has both systolic and diastolic heart failure- will add EMERY-I * HTN- blood pressure has been elevated the past 2 days- will add Lisinopril
--- NOTE | 2018-05-26 13:42 | PDOC.CTH ---
<Pearl Patel - Last Filed: 05/26/18 15:51> Cardiology Progress Note - Subjective The pt seen and examined. No overnight events. No cardiac complaints. - Objective Vital Signs Temp Pulse Pulse Pulse Resp BP BP 05/26/18 12:02 97.9 F 53 L 14 05/26/18 10:01 57 L 59 L 177/76 H 173/75 H 05/26/18 08:16 97.8 F 50 L 14 05/26/18 08:00 97.8 F 50 L 14 05/26/18 03:18 97.7 F 54 L 22 H BP Pulse Ox Pulse Ox Pulse Ox 05/26/18 12:02 158/67 H 94 L 05/26/18 10:01 96 95 05/26/18 08:16 145/50 H 95 05/26/18 08:00 95 05/26/18 03:18 138/65 95 Admit Weight 120 lb 8 oz Weight 122 lb 9.6 oz 05/25/18 05/26/18 05/27/18 06:59 06:59 06:59 Intake Total 1247 Balance 1247 - Physical Examination General/Neuro: alert & oriented x3 Neck: no JVD present Lungs: CTA Heart: RRR Abdomen: soft Extremities: other: (No edema) - Telemetry Telemetry Rhythm: SB 50s - Labs Result Diagrams: 05/25/18 04:03 05/26/18 04:36 Troponin/CKMB Troponin I 1.975 ng/mL (< 0.028) H* 05/24/18 21:13 - Assessment/Plan 1. NSTEMI - Stable; On Metoprolol 12.5mg BID, EMERY, ASA, and Lovenox, and Plavix. 2. Chronic combined HF - stable; On bblocker and EMERY CAD with Stent placement in 1983 and 2009. 3. HTN - stable with current medication 4. Hyperlipidemia - on Statin 5. Dizziness - cont. having intermittent dizziness with movement, cutting down Metoprolol 12.5mg from 1tab to 09/18 tab 6. s/p Colon resection in 2017 - 7. Bilat Carotid bruits - possible Carotid doppler study as outpt? MAR reviewed * Echo on 05/25/18 showed EF 30-35%, diastolic dysfunction, dilated LA, trace MR and AR, and mild-mod TR. * Plan for Cardiac cath tomorrow by Dr Moeller. The procedure and the risk of LHC were explained to the pt, which included but not limited to: Hemorrhage, infection, perforation of catheter, thrombosis, anaphylaxis reaction and damage to renal function by Iodine, CVA, MA, and possible . He voiced understanding and agreed to proceed the procedure tomorrow by Dr Moeller. Review of Systems - Review of Systems Constitutional: reports: no symptoms reported EENTM: reports: no symptoms reported Respiratory: reports: no symptoms reported Cardiac (ROS): reports: no symptoms reported ABD/GI: reports: no symptoms reported : reports: no symptoms reported Musculoskeletal: reports: no symptoms reported <Tanya Alvarez - Last Filed: 05/26/18 18:12> Cardiology Progress Note - Objective Vital Signs Temp Pulse Pulse Pulse Resp BP BP 05/26/18 17:46 53 L 130/73 05/26/18 15:42 97.3 F L 67 14 05/26/18 12:02 97.9 F 53 L 14 05/26/18 10:01 57 L 59 L 177/76 H 05/26/18 08:16 97.8 F 50 L 14 05/26/18 08:00 97.8 F 50 L 14 BP BP Pulse Ox Pulse Ox Pulse Ox 05/26/18 17:46 05/26/18 15:42 144/64 H 93 L 05/26/18 12:02 158/67 H 94 L 05/26/18 10:01 173/75 H 96 95 05/26/18 08:16 145/50 H 95 05/26/18 08:00 95 Admit Weight 120 lb 8 oz Weight 122 lb 9.6 oz 05/25/18 05/26/18 05/27/18 06:59 06:59 06:59 Intake Total 1247 Balance 1247 - Labs Result Diagrams: 05/25/18 04:03 05/26/18 04:36 Troponin/CKMB Troponin I 1.975 ng/mL (< 0.028) H* 05/24/18 21:13 - Assessment/Plan Pt. seen and eval. by me. I agree with the A/P by the UNCLAIMED PROPERTY OFFICER. Chest clear. RRR. Plan for cardiac cath tomorrow.
[2018-05-26] MEDS ORDERED: Metoprolol Tartrate 25 MG TAB PO SCH (16:00)
[2018-05-26] MEDS ORDERED: Amlodipine 5 MG TAB PO SCH (18:00)
[2018-05-26] MEDS ORDERED: Lisinopril 2.5 MG TAB PO SCH (18:00)
[2018-05-26] MEDS ORDERED: Communication Order-Pharmacy FS SCH (18:15)
[2018-05-26] MEDS ORDERED: predniSONE 20 MG TAB PO SCH (18:45)
[2018-05-26] MEDS: Atorvastatin Calcium 40 MG TAB PO SCH (21:07)
[2018-05-26] MEDS: Pantoprazole 40 MG VIAL IVP SCH (21:08)
[2018-05-27] MEDS: Clopidogrel Bisulfate 75 MG TAB PO SCH (06:00)
[2018-05-27] MEDS: Lisinopril 2.5 MG TAB PO SCH (06:00)
[2018-05-27] MEDS: Aspirin 325 mg Enteric Coated Tablet PO SCH (06:00)
[2018-05-27] MEDS: Metoprolol Tartrate 25 MG TAB PO SCH ×2 (06:01→20:16)
[2018-05-27] MEDS: Pantoprazole 40 MG VIAL IVP SCH ×2 (06:03→20:17)
[2018-05-27] MEDS ORDERED: Lidocaine 1% (PF) 30 ML VIAL ONE (06:36)
[2018-05-27] MEDS ORDERED: diphenhydrAMINE 50 MG/ML VIAL IVP SCH (07:00)
[2018-05-27] MEDS ORDERED: Acetaminophen/Codeine 30-300mg Tablet PO PRN ×2 (07:38)
[2018-05-27] MEDS ORDERED: Nitroglycerin 0.4 MG TAB (25 Tab Bottle) SL PRN (07:38)
[2018-05-27] MEDS ORDERED: traMADol HCl 50 MG TAB PO PRN (07:38)
[2018-05-27] MEDS ORDERED: Sodium Chloride 0.9% 1,000 ML IV SCH (07:45)
[2018-05-27] MEDS ORDERED: Sodium Chloride 0.9% 200 ML IV PRN (07:45)
--- NOTE | 2018-05-27 10:58 | ADD-CON ---
ADDENDUM DATE OF CONSULTATION: 05/25/2018 DATE OF ADMISSION: 05/24/2018 INDICATION FOR CONSULTATION: An 83-year-old female with abnormal cardiac enzymes and episodes of unu sual sensations with a history of coronary artery disease. HISTORY OF PRESENT ILLNESS: This very pleasant, elderly 83-year-old female who was recently in the ospital here and was seen by Dr. Moeller where she underwent a stress test, which was unremarkable and it never showed underlying ischemia. She was then discharged to home. She then presented again yesterday after having some symptoms, which she says she just becomes very chilled. She has history of coronary disease, has undergone angioplasty and stent placements in the past. Since, she has been in the hospital at this time, her cardiac enzymes have become slightly abnormal, which could be comp atible with non-ST segment elevation myocardial infarctions. She does have stents performed, she say s back in 1983. However, it appears that she had stents placed in 2009. She has Cypher stent to the right coronary in the ostium and a 3.0 x 30 mm drug-eluting stent, I believe to a diagonal branch an d also had stent placed to the circumflex and uncertain if this is the actual stent placement, but ap pears that she has at least had 2 to 3 stents placed in the coronary arteries. She says that her sym ptoms were different than what they were now, but she has not had any significant chest discomfort. Her troponin I on admission was 2.78, the second set was 2.387 and the third set now is 1.97 For pas t medical history, social history, family history, review of systems, medications, allergies, please refer to the notes dictated by my Nurse Practitioner. PHYSICAL EXAMINATION: GENERAL: Reveals a very pleasant, elderly female who is alert and oriented x3. VITAL SIGNS: Her blood pressure is 116/57, heart rates in the 50s and shows a sinus rhythm. She is afebrile, respiratory rate is 18. HEENT: Shows head to be normocephalic and atraumatic. She does have a left carotid bruit that I not ed. She has no JVD. CHEST: Clear to auscultation. There were no rales, rhonchi or wheezing noted. CARDIOVASCULAR: Exam reveals a regular rate and rhythm. She had no significant murmurs, heaves, thr ills, bruits or rubs. ABDOMEN: Soft and nontender with positive bowel sounds. No organomegaly or masses were noted. Femo ral pulses are present. Pedal pulses also are present. There is no edema. NEUROLOGIC: She appears to be intact. SKIN: Warm and dry. IMPRESSION: 1. Elderly female with abnormal cardiac enzymes with a peak troponin I of 2.7, which was already pre sent on admission, it may be that she had had some demand ischemia or some abnormalities after the st ress test, but certainly is somewhat concerning in this elderly female with a history of coronary art brett disease. This is her second admission for the similar symptoms and most likely she will need to undergo a cardiac catheterization, a definitive tool to rule out evidence of underlying coronary nain ry disease. We will continue to follow her over the weekend and plan for most likely a cardiac zacarias terization on Sunday and she is in agreement with this plan. 2. History of known coronary artery disease with stent placements in the past, uncertain exactly whe n they were placed, but she believes that were done in 1983 and 2009, but they may have all been done at different times in 2009. 3. Hypertension. This appears to be under reasonable control. We will need to adjust medications a s needed. 4. Hyperlipidemia. We will continue her medications. She has had very good control of the choleste rol at this time. 5. Occasional dizziness. She is uncertain as to the etiology of this and now when she gets up she d oes become some slightly dizzy. This may be due to mild orthostatic hypotension. We would be more t chan happy to continue to follow the patient, will defer her likely cardiac catheterization to Dr. Wilberto jalloh on Sunday when he returns.
--- NOTE | 2018-05-27 13:26 | PDOC.PN ---
- Subjective Encounter Start Date: 05/27/18 Encounter Start Time: 13:24 Ms. Zayas was seen today in follow-up of NSTEMI. She says she feels fine. She has returned from the cardiac catheterization. - Objective Resuscitation Status: Resuscitation Status FULL:Full Resuscitation MAR Reviewed: Yes Vital Signs & Weight: Vital Signs (12 hours) Temp Pulse Pulse Pulse Resp BP BP 05/27/18 11:20 84 70 146/67 H 05/27/18 07:45 97.7 F 53 L 16 05/27/18 06:00 65 161/69 H 05/27/18 03:32 97.3 F L 58 L 14 BP BP BP Pulse Ox Pulse Ox Pulse Ox 05/27/18 11:20 134/74 96 93 L 05/27/18 07:45 154/67 H 100 05/27/18 06:00 05/27/18 03:32 161/69 H 90 L Weight Admit Weight 120 lb 8 oz Weight 121 lb 3.2 oz I&O: 05/26/18 05/27/18 05/28/18 06:59 06:59 06:59 Intake Total 1247 820 Output Total 600 Balance 1247 220 Result Diagrams: 05/25/18 04:03 05/26/18 04:36 Phys Exam - Physical Examination HEENT: PERRLA Respiratory: no wheezing, no rales, no rhonchi, clear to auscultation bilateral Cardiovascular: RRR, no significant murmur, no rub no gallop Gastrointestinal: soft, non-tender, no distention, positive bowel sounds Musculoskeletal: no edema Dx/Plan (1) NSTEMI (non-ST elevated myocardial infarction) Code(s): I21.4 - NON-ST ELEVATION (NSTEMI) MYOCARDIAL INFARCTION Status: Acute (2) Hypertension Code(s): I10 - ESSENTIAL (PRIMARY) HYPERTENSION Status: Chronic (3) Dyslipidemia Code(s): E78.5 - HYPERLIPIDEMIA, UNSPECIFIED Status: Chronic - Plan * NSTEMI- still await cardiac zacarias result * HTN- somewhat labile, but will continue the current regimen * Disposition as per Cardiology.
[2018-05-27] MEDS ORDERED: Iopamidol 370 76% 100 ML VIAL ONE (15:27)
[2018-05-27] MEDS: Famotidine 20 MG TAB PO SCH (20:16)
[2018-05-27] MEDS: Atorvastatin Calcium 40 MG TAB PO SCH (20:16)
[2018-05-28] MEDS: Metoprolol Tartrate 25 MG TAB PO SCH (10:24)
[2018-05-28] MEDS: Lisinopril 2.5 MG TAB PO SCH (10:42)
[2018-05-28] MEDS: Clopidogrel Bisulfate 75 MG TAB PO SCH (10:42)
[2018-05-28] MEDS: Pantoprazole 40 MG VIAL IVP SCH (10:43)
--- NOTE | 2018-05-28 11:46 | PDOC.PN ---
- Subjective Encounter Start Date: 05/28/18 Encounter Start Time: 11:44 Ms. Zayas was seen today in follow-up of NSTEMI. Today she says she feels fine. She does not have any complaints. She denies chest pain or shortness of breath. - Objective Resuscitation Status: Resuscitation Status FULL:Full Resuscitation MAR Reviewed: Yes Vital Signs & Weight: Vital Signs (12 hours) Temp Pulse Pulse Pulse Resp BP BP 05/28/18 10:42 52 L 142/63 H 05/28/18 09:19 52 L 47 L 142/63 H 05/28/18 08:10 97.5 F L 49 L 18 05/28/18 07:20 97.5 F L 49 L 18 05/28/18 04:00 97.9 F 52 L 20 BP BP BP Pulse Ox Pulse Ox Pulse Ox 05/28/18 10:42 05/28/18 09:19 142/66 H 97 96 05/28/18 08:10 95 05/28/18 07:20 148/70 H 95 05/28/18 04:00 137/60 93 L Weight Admit Weight 120 lb 8 oz Weight 122 lb I&O: 05/27/18 05/28/18 05/29/18 06:59 06:59 06:59 Intake Total 820 460 Output Total 600 300 Balance 220 160 Result Diagrams: 05/25/18 04:03 05/26/18 04:36 Phys Exam - Physical Examination HEENT: PERRLA Respiratory: no wheezing, no rales, no rhonchi, clear to auscultation bilateral Cardiovascular: RRR, no significant murmur, no rub Gastrointestinal: soft, non-tender, no distention, positive bowel sounds Musculoskeletal: no edema Dx/Plan (1) NSTEMI (non-ST elevated myocardial infarction) Code(s): I21.4 - NON-ST ELEVATION (NSTEMI) MYOCARDIAL INFARCTION Status: Acute (2) Hypertension Code(s): I10 - ESSENTIAL (PRIMARY) HYPERTENSION Status: Chronic (3) Dyslipidemia Code(s): E78.5 - HYPERLIPIDEMIA, UNSPECIFIED Status: Chronic (4) Chronic combined systolic and diastolic CHF (congestive heart failure) Code(s): I50.42 - CHRONIC COMBINED SYSTOLIC AND DIASTOLIC HRT FAIL Status: Acute - Plan * NSTEMI- ? etiology- await further recommendation from Cardiology * Combined Systolic and diastolic heart failure ( NYHA- 2)- continue Lisinopril , heart rate is too slow for addition of a beta-kyle . * HTN- blood pressure is a bit labile but within acceptable range * Possible home today
[2018-05-28 20:27] VITALS: BP 154/67; TEMP 98.1
--- NOTE | 2018-05-29 02:14 | DIS ---
DATE OF ADMISSION: 05/24/2018 DATE OF DISCHARGE: 05/28/2018 PRIMARY CARE PHYSICIAN: Jorge Johns MD DISCHARGE DISPOSITION: Home. PRIMARY DISCHARGE DIAGNOSES: 1. Non-ST segment elevated myocardial infarction. 2. Chronic combined systolic and diastolic heart failure. 3. Hypertension. 4. Dyslipidemia. DISCHARGE MEDICATIONS: Include lisinopril, the dose was reduced to 10 mg daily; Lopressor 6.25 mg tw ice a day was added, but is to be held for heart rate less than 70. Continue slow release iron 46 mg daily, diphenhydramine 25 mg q.6 hours p.r.n., Plavix 75 mg daily, atorvastatin 40 mg daily. CODE STATUS: FULL CODE. ALLERGIES: IODINE. PROCEDURES DONE DURING ADMISSION: The patient had a cardiac catheterization in which there was found moderate coronary artery disease. There was a patent stent in the circumflex. The patient had an e chocardiogram, the ejection fraction was estimated at 30-35%. There was some diastolic dysfunction, normal size of the right ventricular cavity. The left atrium was of normal size. HOSPITAL COURSE: Ms. Zayas is a pleasant 83-year-old female who presented to the emergency room with complaints of feeling extremely dizzy and weak. When she was evaluated in the emergency room, she w as found to have an elevated troponin of 2.7. She was admitted and Cardiology was consulted. She un derwent cardiac catheterization. She was found to have some moderate coronary artery disease. She w as treated medically for this. Echocardiogram demonstrated some reduction in her ejection fraction a s well as diastolic dysfunction; however, this appears to be compensated as she did not have any sign s of overt heart failure. Metoprolol was added to her regimen and she was subsequently able to be di scharged home and to have close outpatient followup with her primary care physician in approximately one week.
== END 2018-05-28 20:45 | disposition home or self-care (01) | DRG 281 ==
LOC: ERS 14:29 → 2NO 18:25
PROVIDERS: ADMIT Family Medicine; ATTEND Family Medicine
DX: I21.4 Non-ST elevation (NSTEMI) myocardial infarction (principal); I50.42 Chronic combined systolic (congestive) and diastolic (congestive) heart failure; I25.10 Atherosclerotic heart disease of native coronary artery without angina pectoris; I11.0 Hypertensive heart disease with heart failure; E78.5 Hyperlipidemia, unspecified; Z79.02 Long term (current) use of antithrombotics/antiplatelets; Z79.899 Other long term (current) drug therapy; Z85.038 Personal history of other malignant neoplasm of large intestine; I08.3 Combined rheumatic disorders of mitral, aortic and tricuspid valves; Z95.5 Presence of coronary angioplasty implant and graft; Z90.49 Acquired absence of other specified parts of digestive tract
CPT/HCPCS: 36415; 36416; 71045; 76942; 78452; 80048; 80053; 80061; 81003; 81015; 82550; 82553; 83605; 83690; 83735; 83880; 84443; 84484; 85007; 85014; 85018; 85025; 85027; 85049; 85379; 87040; 90471; 90670; 93005; 93017; 93306; 93458; 93798; 93970; 94760; 96372; 96374; 96375; A4216; A9500; C1760; C1769; C9113; G0009; G0378; G8978-GP-CI; G8979-GP-CI; G8980-GP-CI; J0153; J0360; J1644; J1650; J1940; J2001; J7506